=== PATIENT | female | born 2005 | race Caucasian/White ===

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

== ENCOUNTER 2023-04-06 09:22 | Emergency (ER) | payer OTHER ==
[~2023-04-06] VITALS: Ht 160 cm; Wt 99.8 kg
[~2023-04-06 09:22] MED LIST: BENZ-300 PO; DOXY-690 PO
[2023-04-06 09:51] VITALS: BP 96/63; PULSE 125; RESP 18; TEMP 98.8; O2SAT 97
[2023-04-06] MEDS ORDERED: ONDANSETRON 4 MG/2 ML VIAL IVP ONE (10:20)
[2023-04-06] MEDS ORDERED: NACL 0.9% 1,000 ML IV ONE (10:20)
[2023-04-06 10:56] LABS: BASOPHILS % (AUTO) 0.1 % (0.0-2.0); EOSINOPHILS % (AUTO) 0.1 % (0.0-4.0); HEMOGLOBIN 13.3 g/dL (12.0-16.0); LYMPHOCYTES # (AUTO) 0.7 K/uL (2.5-16.5); LYMPHOCYTES % (AUTO) 8.6 % (20.5-51.1); MEAN CORPUSCULAR HEMOGLOBIN 29 pg (27-31); MEAN CORPUSCULAR HGB CONC 34 g/dL (33-37); MEAN CORPUSCULAR VOLUME 84.3 fL (80-94); MONOCYTES # (AUTO) 0.3 K/uL (0.8-1.0); MONOCYTES % (AUTO) 4.2 % (1.7-9.3); NEUTROPHILS # (AUTO) 6.9 K/uL (1.8-7.7); PLATELET COUNT (AUTO) 247 K/uL (140-450); RED BLOOD CELL COUNT(AUTO) 4.63 MIL/uL (4.20-5.40); RED CELL DISTRIBUTION WIDTH 13.9 % (11.6-13.7)
[2023-04-06 11:09] LABS: APPEARANCE,URINE CLEAR (CLEAR); BILIRUBIN,URINE 2+ (NEGATIVE); BLOOD, URINE NEGATIVE (NEGATIVE); COLOR,URINE YELLOW (YELLOW); LEUKOCYTE ESTERASE ,URINE TRACE (NEGATIVE); NITRITE, URINE POSITIVE (NEGATIVE); PROTEIN,URINE 2+ (NEGATIVE); UGLUCOSE NEGATIVE (NEGATIVE)
[2023-04-06 11:16] LABS: ANION GAP 14.4 (8-16); CALCIUM 8.7 mg/dL (8.5-10.1); CARBON DIOXIDE 22.1 mmol/L (21-32); CREATININE 0.6 mg/dL (0.6-1.3); POTASSIUM 3.5 mmol/L (3.5-5.1)
[2023-04-06 11:21] LABS: ICTOTEST NEGATIVE (NEGATIVE); RBC,URINE 0-5 /HPF (0-5); WBC,URINE 16-25 (MOD) /HPF (0-5)
[2023-04-06 11:22] LABS: BACTERIA,URINE 2+ /HPF (None Seen); SQUAMOUS EPITHELIAL CELL,UR >100 /LPF (0-3 (FEW))
[2023-04-06 11:37] LABS: ALBUMIN 2.7 g/dL (3.4-5.0); BILIRUBIN,DIRECT 0.1 mg/dL (0.0-0.3); TOTAL BILIRUBIN 0.5 mg/dL (0.0-1.0); TOTAL PROTEIN, SERUM 6.7 g/dL (6.4-8.2)
[2023-04-06] MEDS ORDERED: NITR100C7 PO (12:12)
[2023-04-06] MEDS ORDERED: DOXY1TCP PO (12:13)
[2023-04-06 12:17] VITALS: O2SAT 97
[2023-04-06 12:51] VITALS: BP 98/64; PULSE 98; RESP 15; TEMP 98.8; O2SAT 98
== END 2023-04-06 10:45 | disposition home or self-care (01) ==
LOC: MED 09:22
DX: O23.41 Unspecified infection of urinary tract in pregnancy, first trimester (principal); O99.611 Diseases of the digestive system complicating pregnancy, first trimester; R19.7 Diarrhea, unspecified; O26.611 Liver and biliary tract disorders in pregnancy, first trimester; K80.20 Calculus of gallbladder without cholecystitis without obstruction; O21.8 Other vomiting complicating pregnancy; Z3A.14 14 weeks gestation of pregnancy; Z79.899 Other long term (current) drug therapy; Z79.2 Long term (current) use of antibiotics; Z88.0 Allergy status to penicillin
CPT/HCPCS: 36415; 76705; 80048; 80076; 81001; 81025; 83690; 85025; 87086; 96361; 96374; 99285; J2405; J7030; Q0092

== ENCOUNTER 2023-05-23 09:53 | Observation (INO) | payer OTHER ==
[~2023-05-23] VITALS: Ht 160 cm; Wt 104.8 kg
[~2023-05-23 09:53] MED LIST changes: +DOXY1TCP PO; +NITR100C7 PO
[2023-05-23] MEDS ORDERED: PREN-543 PO (10:16)
[2023-05-23 10:33] VITALS: BP 111/56; PULSE 93; RESP 18; TEMP 98.9
== END 2023-05-23 12:05 | disposition home or self-care (01) ==
LOC: MLD 09:53
PROVIDERS: ADMIT Obstetrics & Gynecology; ATTEND Obstetrics & Gynecology
DX: O26.852 Spotting complicating pregnancy, second trimester (principal); O46.92 Antepartum hemorrhage, unspecified, second trimester; O26.892 Other specified pregnancy related conditions, second trimester; R10.30 Lower abdominal pain, unspecified; Z3A.21 21 weeks gestation of pregnancy
CPT/HCPCS: 76817; 81000; G0378; G0379; Q0092

== ENCOUNTER 2023-08-16 17:00 | Observation (INO) | payer OTHER ==
[~2023-08-16] VITALS: Ht 162.6 cm; Wt 117.9 kg
[~2023-08-16 17:00] MED LIST changes: -BENZ-300 PO; -DOXY-690 PO; -DOXY1TCP PO; -NITR100C7 PO; +PREN-543 PO
[2023-08-16 17:50] VITALS: BP 108/64; PULSE 95; RESP 18; TEMP 97.7
== END 2023-08-16 18:10 | disposition home or self-care (01) ==
LOC: MLD 17:00
PROVIDERS: ADMIT Obstetrics & Gynecology; ATTEND Obstetrics & Gynecology
DX: O99.613 Diseases of the digestive system complicating pregnancy, third trimester (principal); O26.893 Other specified pregnancy related conditions, third trimester; K80.20 Calculus of gallbladder without cholecystitis without obstruction; N89.8 Other specified noninflammatory disorders of vagina; Z3A.40 40 weeks gestation of pregnancy; Z88.0 Allergy status to penicillin
CPT/HCPCS: 81000; G0378; G0379

== ENCOUNTER 2023-12-01 14:31 | Inpatient (IN) | payer OTHER ==
[~2023-12-01] VITALS: Ht 160 cm; Wt 112.9 kg
[2023-12-01 14:43] VITALS: BP 99/53; PULSE 76; RESP 16; TEMP 98; O2SAT 99
[2023-12-01 15:18] LABS: BILIRUBIN,URINE 1+ (NEGATIVE); BLOOD, URINE NEGATIVE (NEGATIVE); COLOR,URINE YELLOW (YELLOW); LEUKOCYTE ESTERASE ,URINE TRACE (NEGATIVE); NITRITE, URINE NEGATIVE (NEGATIVE); PH,URINE 7.5 (5.0-9.0); PROTEIN,URINE TRACE (NEGATIVE); UGLUCOSE NEGATIVE (NEGATIVE)
[2023-12-01 15:19] LABS: APPEARANCE,URINE SLIGHTLY CLOUDY (CLEAR)
[2023-12-01 15:30] LABS: ICTOTEST POSITIVE (NEGATIVE)
[2023-12-01 15:31] LABS: RBC,URINE 0 /HPF (0-5); WBC,URINE 0-5 /HPF (0-5)
[2023-12-01 15:32] LABS: BACTERIA,URINE 2+ /HPF (None Seen); MUCUS,URINE None Seen /LPF (None Seen); SQUAMOUS EPITHELIAL CELL,UR 0-3 (FEW) /LPF (0-3 (FEW))
[2023-12-01] MEDS: NACL 0.9% 1,000 ML IV ONE (15:32)
[2023-12-01 15:33] LABS: URINE AMORPHOUS PHOSPHATES 2+ /HPF (None Seen)
[2023-12-01 15:34] LABS: BASOPHILS % (AUTO) 0.4 % (0.0-2.0); EOSINOPHILS # (AUTO) 0.1 K/uL (0-0.4); EOSINOPHILS % (AUTO) 1.2 % (0.0-4.0); HEMATOCRIT 44.8 % (36-48); HEMOGLOBIN 14.3 g/dL (12.0-16.0); LYMPHOCYTES # (AUTO) 1.3 K/uL (2.5-16.5); LYMPHOCYTES % (AUTO) 19.3 % (20.5-51.1); MEAN CORPUSCULAR HEMOGLOBIN 27 pg (27-31); MEAN CORPUSCULAR HGB CONC 32 g/dL (33-37); MEAN CORPUSCULAR VOLUME 82.8 fL (80-94); MONOCYTES # (AUTO) 0.4 K/uL (0.8-1.0); MONOCYTES % (AUTO) 5.9 % (1.7-9.3); NEUTROPHILS # (AUTO) 5.1 K/uL (1.8-7.7); NEUTROPHILS % (AUTO) 73.2 % (42.2-75.2); PLATELET COUNT (AUTO) 353 K/uL (140-450); RED BLOOD CELL COUNT(AUTO) 5.41 MIL/uL (4.20-5.40); RED CELL DISTRIBUTION WIDTH 14.7 % (11.6-13.7)
[2023-12-01] MEDS: KETOROLAC 30 MG/ML VIAL IVP ONE (15:38)
[2023-12-01] MEDS: ONDANSETRON 4 MG/2 ML VIAL IVP ONE (15:38)
[2023-12-01 15:45] LABS: ANION GAP 16.1 (8-16); CALCIUM 9.5 mg/dL (8.5-10.1); CARBON DIOXIDE 25.6 mmol/L (21-32); POTASSIUM 3.7 mmol/L (3.5-5.1)
[2023-12-01 15:51] LABS: ALBUMIN 3.3 g/dL (3.4-5.0); BILIRUBIN,DIRECT 1.6 mg/dL (0.0-0.3); TOTAL BILIRUBIN 1.9 mg/dL (0.0-1.0); TOTAL PROTEIN, SERUM 7.3 g/dL (6.4-8.2)
[2023-12-01] MEDS: MORPHINE SULFATE 4 MG/ML SYR IVP ONE (16:26)
[2023-12-01] MEDS ORDERED: ONDANSETRON 4 MG/2 ML VIAL IVP PRN (16:45)
[2023-12-01] MEDS ORDERED: KCL 20 MEQ IN 100 mL PREMIX 200 ML IV PRN (16:45)
[2023-12-01] MEDS ORDERED: ZOLPIDEM 5 MG TAB PO PRN (16:45)
[2023-12-01] MEDS ORDERED: LORazepam 1 MG TAB PO PRN (16:45)
[2023-12-01] MEDS ORDERED: metroNIDAZOLE 250 MG TAB PO SCH (16:45)
[2023-12-01] MEDS ORDERED: ACETAMINOPHEN 325 MG TAB PO PRN (16:45)
[2023-12-01] MEDS: DEXT 5% /NACL 0.9% 1,000 ML IV SCH (16:45)
[2023-12-01] MEDS: metroNIDAZOLE 500 MG/NS PREMIX 100 ML IV ONE (17:40)
[2023-12-01 18:35] VITALS: BP 99/59; PULSE 59; RESP 18; TEMP 98.4; O2SAT 99
[2023-12-01] MEDS: LEVOFLOXACIN 750 MG/D5W PREMIX 150 ML IV ONE (18:46)
[2023-12-01 19:30] VITALS: O2SAT 96
[2023-12-02] MEDS: metroNIDAZOLE 500 MG/NS PREMIX 100 ML IV SCH (00:39)
[2023-12-02 04:00] VITALS: BP 90/45; PULSE 80; RESP 18; TEMP 97.1; O2SAT 97
[2023-12-02 06:46] LABS: BASOPHILS % (AUTO) 0.3 % (0.0-2.0); EOSINOPHILS # (AUTO) 0.2 K/uL (0-0.4); EOSINOPHILS % (AUTO) 2.4 % (0.0-4.0); HEMATOCRIT 41.2 % (36-48); HEMOGLOBIN 13.4 g/dL (12.0-16.0); LYMPHOCYTES # (AUTO) 1.2 K/uL (2.5-16.5); LYMPHOCYTES % (AUTO) 18.3 % (20.5-51.1); MEAN CORPUSCULAR HEMOGLOBIN 27 pg (27-31); MEAN CORPUSCULAR HGB CONC 33 g/dL (33-37); MEAN CORPUSCULAR VOLUME 83.2 fL (80-94); MONOCYTES # (AUTO) 0.4 K/uL (0.8-1.0); MONOCYTES % (AUTO) 5.3 % (1.7-9.3); NEUTROPHILS # (AUTO) 4.9 K/uL (1.8-7.7); NEUTROPHILS % (AUTO) 73.7 % (42.2-75.2); PLATELET COUNT (AUTO) 300 K/uL (140-450); RED BLOOD CELL COUNT(AUTO) 4.95 MIL/uL (4.20-5.40); RED CELL DISTRIBUTION WIDTH 14.4 % (11.6-13.7); WHITE BLOOD COUNT (AUTO) 6.7 K/uL (4.5-11.0)
[2023-12-02 07:10] LABS: ALBUMIN 2.8 g/dL (3.4-5.0); CALCIUM 8.5 mg/dL (8.5-10.1); CARBON DIOXIDE 22.6 mmol/L (21-32); CREATININE 0.9 mg/dL (0.6-1.3); POTASSIUM 3.6 mmol/L (3.5-5.1); TOTAL BILIRUBIN 3.1 mg/dL (0.0-1.0); TOTAL PROTEIN, SERUM 6.2 g/dL (6.4-8.2)
[2023-12-02 07:37] LABS: PARTIAL THROMBOPLASTIN TIME 22.9 secs (22-35.6); PROTHROMBIN TIME 10.5 secs (10.8-13.4)
[2023-12-02 08:00] VITALS: BP 116/54; PULSE 67; PULSE 80; RESP 18; TEMP 98.7; O2SAT 97
[2023-12-02] MEDS: LEVOFLOXACIN 750 MG/D5W PREMIX 150 ML IV SCH (08:51)
[2023-12-02] MEDS ORDERED: SEVOFLURANE 250 ML BTL INH ONE (15:00)
[2023-12-02 16:00] VITALS: BP 114/60; PULSE 72; RESP 18; TEMP 98; O2SAT 97
[2023-12-02 20:00] VITALS: BP 119/68; PULSE 78; RESP 16; TEMP 97.6; O2SAT 97
[2023-12-02] MEDS: MEDS-TO-BEDS MC SCH (20:09)
[2023-12-03] VITALS (7 sets, daily range): BP systolic 100–131; BP diastolic 46–73; PULSE 62–85; RESP 16–18; TEMP 97.4–98.2; O2SAT 96–100
[2023-12-03 06:49] LABS: BASOPHILS % (AUTO) 0.5 % (0.0-2.0); EOSINOPHILS # (AUTO) 0.1 K/uL (0-0.4); EOSINOPHILS % (AUTO) 2.6 % (0.0-4.0); HEMATOCRIT 39.9 % (36-48); HEMOGLOBIN 13.2 g/dL (12.0-16.0); LYMPHOCYTES # (AUTO) 2.2 K/uL (2.5-16.5); LYMPHOCYTES % (AUTO) 37.9 % (20.5-51.1); MEAN CORPUSCULAR HEMOGLOBIN 28 pg (27-31); MEAN CORPUSCULAR HGB CONC 33 g/dL (33-37); MEAN CORPUSCULAR VOLUME 83.7 fL (80-94); MONOCYTES # (AUTO) 0.3 K/uL (0.8-1.0); NEUTROPHILS # (AUTO) 3.1 K/uL (1.8-7.7); PLATELET COUNT (AUTO) 280 K/uL (140-450); RED BLOOD CELL COUNT(AUTO) 4.77 MIL/uL (4.20-5.40); RED CELL DISTRIBUTION WIDTH 14.4 % (11.6-13.7); WHITE BLOOD COUNT (AUTO) 5.8 K/uL (4.5-11.0)
[2023-12-03 07:48] LABS: ANION GAP 11.4 (8-16); CARBON DIOXIDE 25.1 mmol/L (21-32); POTASSIUM 3.5 mmol/L (3.5-5.1)
[2023-12-03 07:49] LABS: CALCIUM 8.5 mg/dL (8.5-10.1); CREATININE 0.9 mg/dL (0.6-1.3); TOTAL BILIRUBIN 0.6 mg/dL (0.0-1.0); TOTAL PROTEIN, SERUM 5.9 g/dL (6.4-8.2)
[2023-12-03 07:50] LABS: ALBUMIN 2.6 g/dL (3.4-5.0)
[2023-12-03] MEDS: BUPIVACAINE-MPF 0.25% 30 ML VIAL INJ ONE (15:08)
[2023-12-03] MEDS: LIDOCAINE/EPI 1% 1:100000 20 ML VIAL INJ ONE (15:08)
[2023-12-03] MEDS: ROCURONIUM 50 MG/5 ML VIAL IV ONE (15:24)
[2023-12-03] MEDS: fentaNYL citrate 0.05 MG/ML VIAL ONE (15:24)
[2023-12-03] MEDS: MIDAZOLAM 2 MG/2 ML VIAL ONE (15:24)
[2023-12-03] MEDS: PROPOFOL 200 MG/20 ML VIAL IV ONE ×2 (15:56→15:57)
[2023-12-03] MEDS: ONDANSETRON 4 MG/2 ML VIAL ONE (15:56)
[2023-12-03] MEDS: METOCLOPRAMIDE 10 MG/2 ML INJ VIAL ONE (15:56)
[2023-12-03] MEDS: SUCCINYLCHOLINE CHLORIDE 200 MG/10 ML VIAL IVP ONE (15:57)
[2023-12-03] MEDS: LIDOCAINE 2% 100 MG/5 ML SYR IVP ONE (15:57)
[2023-12-03] MEDS ORDERED: SUGAMMADEX SODIUM 200 MG/2 ML VIAL IV ONE (16:16)
[2023-12-03] MEDS ORDERED: KETOROLAC 30 MG/ML VIAL ONE (16:17)
[2023-12-03] MEDS: HYDROmorphone PFS 2 MG/ML SYR ONE (16:40)
[2023-12-03] MEDS ORDERED: diphenhydrAMINE 50 MG/ML VIAL IVP PRN (16:40)
[2023-12-03] MEDS ORDERED: ONDANSETRON 4 MG/2 ML VIAL IVP PRN (16:40)
[2023-12-03] MEDS: LACTATED RINGERS 1,000 ML IV SCH (16:40)
[2023-12-03] MEDS ORDERED: MEPERIDINE 25 MG/ML SYR IVP PRN (16:40)
[2023-12-03] MEDS: HYDROmorphone 1 MG/ML AMP IVP PRN (16:42)
[2023-12-03] MEDS: MORPHINE SULFATE 4 MG/ML SYR IVP PRN (21:29)
[2023-12-04 01:40] VITALS: O2SAT 97
[2023-12-04 06:49] LABS: BASOPHILS % (AUTO) 0.3 % (0.0-2.0); EOSINOPHILS # (AUTO) 0.1 K/uL (0-0.4); EOSINOPHILS % (AUTO) 0.8 % (0.0-4.0); HEMOGLOBIN 12.9 g/dL (12.0-16.0); LYMPHOCYTES # (AUTO) 2.2 K/uL (2.5-16.5); LYMPHOCYTES % (AUTO) 27.6 % (20.5-51.1); MEAN CORPUSCULAR HEMOGLOBIN 27 pg (27-31); MEAN CORPUSCULAR HGB CONC 33 g/dL (33-37); MONOCYTES # (AUTO) 0.4 K/uL (0.8-1.0); MONOCYTES % (AUTO) 5.1 % (1.7-9.3); NEUTROPHILS # (AUTO) 5.4 K/uL (1.8-7.7); NEUTROPHILS % (AUTO) 66.2 % (42.2-75.2); PLATELET COUNT (AUTO) 295 K/uL (140-450); RED BLOOD CELL COUNT(AUTO) 4.69 MIL/uL (4.20-5.40); RED CELL DISTRIBUTION WIDTH 14.3 % (11.6-13.7); WHITE BLOOD COUNT (AUTO) 8.1 K/uL (4.5-11.0)
[2023-12-04 07:13] LABS: ALBUMIN 2.7 g/dL (3.4-5.0); ANION GAP 12.3 (8-16); CALCIUM 8.4 mg/dL (8.5-10.1); CREATININE 0.7 mg/dL (0.6-1.3); POTASSIUM 3.3 mmol/L (3.5-5.1); TOTAL BILIRUBIN 0.5 mg/dL (0.0-1.0); TOTAL PROTEIN, SERUM 6.1 g/dL (6.4-8.2)
[2023-12-04] MEDS: HYDROcodone/APAP 5/325 MG 1 TAB TAB PO PRN (07:43)
[2023-12-04 08:00] VITALS: BP 93/57; PULSE 61; RESP 18; TEMP 97.2; O2SAT 97
[2023-12-04] MEDS: POTASSIUM CHLORIDE 10 MEQ TABER PO PRN (08:05)
[2023-12-04 12:00] VITALS: BP 93/57; PULSE 61; RESP 18; TEMP 97.2; O2SAT 97
[2023-12-04 16:00] VITALS: BP 107/68; PULSE 80; RESP 18; TEMP 97.3; O2SAT 97
[2023-12-04] MEDS ORDERED: DOCU-299 PO (17:37)
[2023-12-04] MEDS ORDERED: ACET-8905 PO (17:37)
[2023-12-04 17:47] VITALS: BP 107/68; PULSE 80; RESP 18; TEMP 97.3
[2023-12-04 17:58] VITALS: BP 107/68; PULSE 80; RESP 18; TEMP 97.3
== END 2023-12-04 18:47 | disposition home or self-care (01) | DRG 263 ==
LOC: MED 14:31 → MTU 16:44
PROVIDERS: ADMIT Internal Medicine; ATTEND Internal Medicine
PROC: 0FT44ZZ Resection of Gallbladder, Percutaneous Endoscopic Approach (ICD-10-PCS; principal; 2023-12-03 15:00)
DX: K80.00 Calculus of gallbladder with acute cholecystitis without obstruction (principal); E44.0 Moderate protein-calorie malnutrition; R74.01 Elevation of levels of liver transaminase levels; E80.6 Other disorders of bilirubin metabolism; Z88.0 Allergy status to penicillin; Z88.8 Allergy status to other drugs, medicaments and biological substances; Z68.41 Body mass index [BMI] 40.0-44.9, adult
CPT/HCPCS: 36415; 76705; 78445; 80048; 80053; 80076; 81001; 83690; 85025; 85610; 85730; 87040; 87086; 88304; 96361; 96365; 96375; 99285; J0330; J1170; J1885; J1956; J2001; J2250; J2270; J2405; J2704; J2765; J3010; J3490; J7030; J7120; Q0092

== ENCOUNTER 2023-12-13 13:33 | Emergency (ER) | payer OTHER ==
[~2023-12-13] VITALS: Ht 162.6 cm; Wt 113.5 kg
[~2023-12-13 13:33] MED LIST changes: +ACET-8905 PO; +DOCU-299 PO; -PREN-543 PO
[2023-12-13 13:47] VITALS: BP 114/58; PULSE 73; RESP 16; TEMP 97.6; O2SAT 95
[2023-12-13] MEDS: BACITRACIN OINT 500 UNITS/GM PKT TP ONE (15:07)
== END 2023-12-13 15:16 | disposition home or self-care (01) ==
LOC: MED 13:33
DX: S31.112D Laceration without foreign body of abdominal wall, epigastric region without penetration into peritoneal cavity, subsequent encounter (principal); Z48.02 Encounter for removal of sutures; F12.90 Cannabis use, unspecified, uncomplicated; Z90.49 Acquired absence of other specified parts of digestive tract; Z79.899 Other long term (current) drug therapy; Z88.0 Allergy status to penicillin; X58.XXXD Exposure to other specified factors, subsequent encounter
CPT/HCPCS: 99282